=== PATIENT | male | born 1945 | race Caucasian/White ===

== ENCOUNTER 2020-08-19 13:10 | Inpatient (IN) ==
[2020-08-19] MEDS ORDERED: ALBUTEROL/IPRATROPIUM 3 ML NEB RESP TX STA (14:15)
[2020-08-19 15:07] LABS: Basophils % 0.1 % (0.0-0.8); Eosinophils # 0.2 10*3/uL (0.0-0.87); Eosinophils % 1.1 % (0.00-10.9); Hematocrit 34.6 VOL% (42.0-52.0); Immature Granulocytes % 0.9 %; Immature Granulocytes Absolute 0.12 #; Lymphocytes # 0.7 10*3/uL (1.4-4.0); Lymphocytes % 4.8 % (21.2-54.2); Mean Corpuscular HGB Conc 31.8 GM/DL (32-36); Mean Corpuscular Volume 85.2 FL (87-102); Mean Platelet Volume 11.3 FL (9.6-12.0); Monocytes % 5.8 % (1.7-12.7); Neutrophils % 87.3 % (38.7-73.9); Platelet Count 246 T/CUMM (130-400); Red Blood Count 4.06 MC/CUMM (3.8-5.5); Red Cell Distribution Width 16.1 % (9.3-17.3); White Blood Count 13.8 T/CUMM (4-12)
[2020-08-19 15:35] LABS: Albumin 2.9 G/DL (3.4-5.0); Bilirubin,Total 0.6 MG/DL (0.2-1.0); Osmolality,Calculated 294.2 MOS/KG (273-304); Potassium 3.8 MMOL/L (3.5-5.1)
[2020-08-19] MEDS ORDERED: ENOXAPARIN 30 MG/0.3 ML SYRINGE SUBCUT STA (15:41)
[2020-08-19] MEDS ORDERED: ASPIRIN CHEW 81 MG TABLET PO STA (15:41)
[2020-08-19] MEDS ORDERED: FUROSEMIDE 100 MG/10 ML VIAL IV STA (15:41)
[2020-08-19] MEDS ORDERED: ACETAMINOPHEN 325 MG TABLET PO PRN (15:58)
[2020-08-19] MEDS ORDERED: ONDANSETRON 4 MG/2 ML VIAL IV PRN (15:58)
[2020-08-19] MEDS ORDERED: ENOXAPARIN 100 MG/ML SYRINGE SUBCUT ONE (16:13)
[2020-08-19] MEDS ORDERED: ZALEPLON 5 MG CAPSULE PO PRN (18:25)
[2020-08-19] MEDS ORDERED: ALBUTEROL/IPRATROPIUM 3 ML NEB RESP TX PRN (18:29)
[2020-08-19] MEDS: ALBUTEROL/IPRATROPIUM 3 ML NEB RESP TX SCH (20:07)
[2020-08-19] MEDS: TAMSULOSIN 0.4 MG CAPSULE PO SCH (21:29)
[2020-08-19] MEDS: carvediloL 25 MG TABLET PO SCH (21:29)
[2020-08-19] MEDS: DOCUSATE SODIUM 100 MG CAPSULE PO SCH (21:29)
[2020-08-20 01:06] LABS: Basophils % 0.2 % (0.0-0.8); Eosinophils # 0.1 10*3/uL (0.0-0.87); Eosinophils % 0.5 % (0.00-10.9); Hematocrit 32.8 VOL% (42.0-52.0); Hemoglobin 10.5 GM/DL (14.0-18.0); Immature Granulocytes % 0.6 %; Immature Granulocytes Absolute 0.07 #; Lymphocytes # 0.8 10*3/uL (1.4-4.0); Lymphocytes % 6.2 % (21.2-54.2); Mean Corpuscular Volume 84.3 FL (87-102); Mean Platelet Volume 11.3 FL (9.6-12.0); Neutrophils % 87.5 % (38.7-73.9); Platelet Count 243 T/CUMM (130-400); Red Blood Count 3.89 MC/CUMM (3.8-5.5); Red Cell Distribution Width 15.9 % (9.3-17.3); White Blood Count 12.3 T/CUMM (4-12)
[2020-08-20] MEDS: ALBUTEROL/IPRATROPIUM 3 ML NEB RESP TX SCH ×4 (01:19→20:30)
[2020-08-20 01:38] LABS: Risk Ratio 3.78; Thyroid Stimulating Hormone 0.822 uIU/ml (0.358-3.74); VLDL CHOLESTEROL 25.4 MG/DL
[2020-08-20] MEDS ORDERED: POTASSIUM CHLORIDE 10 MEQ TABLET PO SCH (09:00)
[2020-08-20 09:06] LABS: Calcium 8.3 MG/DL (8.5-10.1); Osmolality,Calculated 285.8 MOS/KG (273-304); Potassium 3.3 MMOL/L (3.5-5.1)
[2020-08-20] MEDS: ASPIRIN CHEW 81 MG TABLET PO SCH (10:11)
[2020-08-20] MEDS: amLODIPine 5 MG TABLET PO SCH (10:11)
[2020-08-20] MEDS: DUTASTERIDE 0.5 MG CAPSULE PO SCH (10:11)
[2020-08-20] MEDS: PANTOPRAZOLE 40 MG TABLET PO SCH (10:11)
[2020-08-20] MEDS: carvediloL 25 MG TABLET PO SCH ×2 (10:11→22:24)
[2020-08-20] MEDS: ATORVASTATIN 40 MG TABLET PO SCH (10:11)
[2020-08-20] MEDS: DOCUSATE SODIUM 100 MG CAPSULE PO SCH ×2 (10:12→22:25)
[2020-08-20] MEDS: FUROSEMIDE 40 MG/4 ML VIAL IV SCH ×2 (10:36→15:55)
[2020-08-20] MEDS ORDERED: TUBERCULIN SKIN TEST 0.1 ML SYRINGE INTRADERM ONE (17:00)
[2020-08-20] MEDS: APIXABAN 5 MG TABLET PO SCH (22:24)
[2020-08-20] MEDS: TAMSULOSIN 0.4 MG CAPSULE PO SCH (22:24)
[2020-08-21] MEDS: ALBUTEROL/IPRATROPIUM 3 ML NEB RESP TX SCH ×4 (01:50→20:48)
[2020-08-21 05:35] LABS: Basophils % 0.2 % (0.0-0.8); Eosinophils # 0.4 10*3/uL (0.0-0.87); Eosinophils % 2.8 % (0.00-10.9); Hemoglobin 10.7 GM/DL (14.0-18.0); Immature Granulocytes % 0.8 %; Lymphocytes # 1.1 10*3/uL (1.4-4.0); Lymphocytes % 8.9 % (21.2-54.2); Mean Corpuscular HGB Conc 32.4 GM/DL (32-36); Mean Corpuscular Volume 83.1 FL (87-102); Mean Platelet Volume 11.3 FL (9.6-12.0); Neutrophils % 78.3 % (38.7-73.9); Platelet Count 251 T/CUMM (130-400); Red Blood Count 3.97 MC/CUMM (3.8-5.5); Red Cell Distribution Width 15.5 % (9.3-17.3); White Blood Count 12.7 T/CUMM (4-12)
[2020-08-21 06:06] LABS: Albumin 2.7 G/DL (3.4-5.0); Bilirubin,Total 0.5 MG/DL (0.2-1.0); Calcium 7.8 MG/DL (8.5-10.1); Osmolality,Calculated 292.1 MOS/KG (273-304); Total Protein 6.7 G/DL (5.0-7.5)
[2020-08-21 06:42] LABS: Hypochromasia 1+; Microcytosis 1+
[2020-08-21 06:43] LABS: Ovalocytes Slight; Platelet Estimate Normal
[2020-08-21] MEDS ORDERED: AZITHROMYCIN 250 MG TABLET PO ONE (07:53)
[2020-08-21] MEDS: PANTOPRAZOLE 40 MG TABLET PO SCH (09:22)
[2020-08-21] MEDS: DUTASTERIDE 0.5 MG CAPSULE PO SCH (09:22)
[2020-08-21] MEDS: ASPIRIN CHEW 81 MG TABLET PO SCH (09:22)
[2020-08-21] MEDS: DOCUSATE SODIUM 100 MG CAPSULE PO SCH ×2 (09:22→20:35)
[2020-08-21] MEDS: amLODIPine 5 MG TABLET PO SCH (09:23)
[2020-08-21] MEDS: APIXABAN 5 MG TABLET PO SCH ×2 (09:23→20:35)
[2020-08-21] MEDS: carvediloL 25 MG TABLET PO SCH ×2 (09:23→20:35)
[2020-08-21] MEDS: ATORVASTATIN 40 MG TABLET PO SCH (09:23)
[2020-08-21] MEDS: POTASSIUM CHLORIDE 10 MEQ TABLET PO SCH ×2 (09:23→20:34)
[2020-08-21] MEDS: FUROSEMIDE 40 MG/4 ML VIAL IV SCH (09:24)
[2020-08-21] MEDS: POTASSIUM CHLORIDE RIDER 10 MEQ in PREMIX 1 EACH IV SCH ×3 (09:24→13:54)
[2020-08-21] MEDS: BENZONATATE 100 MG CAPSULE PO PRN ×2 (11:05→18:12)
[2020-08-21] MEDS ORDERED: POTASSIUM CHLORIDE 20 MEQ TABLET PO ONE (11:57)
[2020-08-21] MEDS ORDERED: POTASSIUM CHLORIDE RIDER 10 MEQ in PREMIX 1 EACH IV SCH (13:30)
[2020-08-21] MEDS: FUROSEMIDE 40 MG TABLET PO SCH (16:50)
[2020-08-21] MEDS: TAMSULOSIN 0.4 MG CAPSULE PO SCH (20:35)
[2020-08-21] MEDS: BENZOCAINE/MENTHOL LOZENGE 18/BOX PO PRN (20:36)
[2020-08-22] MEDS: BENZOCAINE/MENTHOL LOZENGE 18/BOX PO PRN ×2 (01:59→20:39)
[2020-08-22] MEDS: ALBUTEROL/IPRATROPIUM 3 ML NEB RESP TX SCH ×4 (02:12→19:19)
[2020-08-22 05:15] LABS: Basophils # 0.1 10*3/uL (0.0-0.2); Basophils % 0.4 % (0.0-0.8); Eosinophils # 0.4 10*3/uL (0.0-0.87); Eosinophils % 3.5 % (0.00-10.9); Hematocrit 33.6 VOL% (42.0-52.0); Hemoglobin 10.8 GM/DL (14.0-18.0); Immature Granulocytes % 1.6 %; Immature Granulocytes Absolute 0.19 #; Lymphocytes # 1.1 10*3/uL (1.4-4.0); Lymphocytes % 9.6 % (21.2-54.2); Mean Corpuscular HGB Conc 32.1 GM/DL (32-36); Mean Corpuscular Volume 84.8 FL (87-102); Mean Platelet Volume 11.1 FL (9.6-12.0); Monocytes % 9.8 % (1.7-12.7); NRBC # 0.02 10*3/uL; Neutrophils % 75.1 % (38.7-73.9); Platelet Count 289 T/CUMM (130-400); Red Blood Count 3.96 MC/CUMM (3.8-5.5); Red Cell Distribution Width 15.5 % (9.3-17.3); White Blood Count 11.9 T/CUMM (4-12)
[2020-08-22 05:43] LABS: Albumin 2.6 G/DL (3.4-5.0); Bilirubin,Total 0.6 MG/DL (0.2-1.0); Calcium 7.8 MG/DL (8.5-10.1); Osmolality,Calculated 295.5 MOS/KG (273-304); Potassium 3.1 MMOL/L (3.5-5.1); Total Protein 6.7 G/DL (5.0-7.5)
[2020-08-22] MEDS: amLODIPine 5 MG TABLET PO SCH (09:02)
[2020-08-22] MEDS: DUTASTERIDE 0.5 MG CAPSULE PO SCH (09:02)
[2020-08-22] MEDS: PANTOPRAZOLE 40 MG TABLET PO SCH (09:02)
[2020-08-22] MEDS: APIXABAN 5 MG TABLET PO SCH ×2 (09:02→20:34)
[2020-08-22] MEDS: FUROSEMIDE 40 MG TABLET PO SCH ×2 (09:02→15:52)
[2020-08-22] MEDS: POTASSIUM CHLORIDE 10 MEQ TABLET PO SCH ×2 (09:03→20:35)
[2020-08-22] MEDS: carvediloL 25 MG TABLET PO SCH ×2 (09:03→20:35)
[2020-08-22] MEDS: ASPIRIN CHEW 81 MG TABLET PO SCH (09:03)
[2020-08-22] MEDS: ATORVASTATIN 40 MG TABLET PO SCH (09:03)
[2020-08-22] MEDS: AZITHROMYCIN 250 MG TABLET PO SCH (09:03)
[2020-08-22] MEDS: DOCUSATE SODIUM 100 MG CAPSULE PO SCH ×2 (09:03→20:35)
[2020-08-22] MEDS: BENZONATATE 100 MG CAPSULE PO PRN (15:52)
[2020-08-22] MEDS: TAMSULOSIN 0.4 MG CAPSULE PO SCH (20:35)
[2020-08-22] MEDS: cefTRIAXone 1,000 MG in SYRINGE 1 EACH IV SCH (20:35)
[2020-08-23] MEDS: ALBUTEROL/IPRATROPIUM 3 ML NEB RESP TX SCH ×4 (01:36→19:15)
[2020-08-23 05:30] LABS: Basophils # 0.1 10*3/uL (0.0-0.2); Basophils % 0.5 % (0.0-0.8); Eosinophils # 0.3 10*3/uL (0.0-0.87); Eosinophils % 3.3 % (0.00-10.9); Hemoglobin 10.9 GM/DL (14.0-18.0); Immature Granulocytes Absolute 0.39 #; Lymphocytes # 1.8 10*3/uL (1.4-4.0); Lymphocytes % 18.1 % (21.2-54.2); Mean Corpuscular HGB Conc 31.1 GM/DL (32-36); Mean Platelet Volume 10.7 FL (9.6-12.0); Monocytes % 12.7 % (1.7-12.7); NRBC # 0.04 10*3/uL; Neutrophils % 61.4 % (38.7-73.9); Platelet Count 302 T/CUMM (130-400); Red Blood Count 4.07 MC/CUMM (3.8-5.5); Red Cell Distribution Width 15.5 % (9.3-17.3); White Blood Count 9.7 T/CUMM (4-12)
[2020-08-23 05:48] LABS: Albumin 2.5 G/DL (3.4-5.0); Bilirubin,Direct 0.16 MG/DL (0.0-0.20); Bilirubin,Indirect 0.2 MG/DL (0.0-1.0); Bilirubin,Total 0.4 MG/DL (0.2-1.0); Osmolality,Calculated 285.7 MOS/KG (273-304); Potassium 3.1 MMOL/L (3.5-5.1); Total Protein 6.4 G/DL (5.0-7.5)
[2020-08-23] MEDS: BENZONATATE 100 MG CAPSULE PO PRN ×2 (09:21→17:06)
[2020-08-23] MEDS: APIXABAN 5 MG TABLET PO SCH ×2 (09:21→20:32)
[2020-08-23] MEDS: ASPIRIN CHEW 81 MG TABLET PO SCH (09:21)
[2020-08-23] MEDS: DUTASTERIDE 0.5 MG CAPSULE PO SCH (09:21)
[2020-08-23] MEDS: ATORVASTATIN 40 MG TABLET PO SCH (09:21)
[2020-08-23] MEDS: carvediloL 25 MG TABLET PO SCH ×2 (09:21→20:32)
[2020-08-23] MEDS: DOCUSATE SODIUM 100 MG CAPSULE PO SCH ×2 (09:22→20:31)
[2020-08-23] MEDS: amLODIPine 5 MG TABLET PO SCH (09:22)
[2020-08-23] MEDS: AZITHROMYCIN 250 MG TABLET PO SCH (09:22)
[2020-08-23] MEDS: FUROSEMIDE 40 MG TABLET PO SCH ×2 (09:22→17:06)
[2020-08-23] MEDS: PANTOPRAZOLE 40 MG TABLET PO SCH (09:22)
[2020-08-23] MEDS: POTASSIUM CHLORIDE 10 MEQ TABLET PO SCH ×2 (09:22→20:32)
[2020-08-23] MEDS ORDERED: POTASSIUM CHLORIDE 20 MEQ TABLET PO ONE (14:31)
[2020-08-23] MEDS ORDERED: POTASSIUM CHLORIDE 20 MEQ TABLET PO PRN (16:55)
[2020-08-23] MEDS: cefTRIAXone 1,000 MG in SYRINGE 1 EACH IV SCH (20:31)
[2020-08-23] MEDS: TAMSULOSIN 0.4 MG CAPSULE PO SCH (20:32)
[2020-08-24] MEDS: ALBUTEROL/IPRATROPIUM 3 ML NEB RESP TX SCH ×4 (01:12→20:03)
[2020-08-24] MEDS: BENZOCAINE/MENTHOL LOZENGE 18/BOX PO PRN ×2 (02:14→09:30)
[2020-08-24] MEDS: carvediloL 25 MG TABLET PO SCH ×2 (09:30→20:34)
[2020-08-24] MEDS: DOCUSATE SODIUM 100 MG CAPSULE PO SCH ×2 (09:30→20:33)
[2020-08-24] MEDS: ASPIRIN CHEW 81 MG TABLET PO SCH (09:30)
[2020-08-24] MEDS: ATORVASTATIN 40 MG TABLET PO SCH (09:30)
[2020-08-24] MEDS: PANTOPRAZOLE 40 MG TABLET PO SCH (09:30)
[2020-08-24] MEDS: POTASSIUM CHLORIDE RIDER 10 MEQ in PREMIX 1 EACH IV SCH ×4 (09:30→10:35)
[2020-08-24] MEDS: POTASSIUM CHLORIDE 20 MEQ TABLET PO SCH ×2 (09:30→20:34)
[2020-08-24] MEDS: DUTASTERIDE 0.5 MG CAPSULE PO SCH (09:30)
[2020-08-24] MEDS: FUROSEMIDE 40 MG TABLET PO SCH ×2 (09:30→15:46)
[2020-08-24] MEDS: APIXABAN 5 MG TABLET PO SCH ×2 (09:30→20:34)
[2020-08-24] MEDS: AZITHROMYCIN 250 MG TABLET PO SCH (09:30)
[2020-08-24] MEDS: amLODIPine 5 MG TABLET PO SCH (09:30)
[2020-08-24] MEDS: POTASSIUM CHLORIDE 10 MEQ TABLET PO SCH (10:00)
[2020-08-24] MEDS: POTASSIUM CHLORIDE 20 MEQ TABLET PO PRN ×2 (10:22→15:46)
[2020-08-24] MEDS: TAMSULOSIN 0.4 MG CAPSULE PO SCH (20:34)
[2020-08-24] MEDS: cefTRIAXone 1,000 MG in SYRINGE 1 EACH IV SCH (21:00)
[2020-08-25] MEDS: ALBUTEROL/IPRATROPIUM 3 ML NEB RESP TX SCH ×4 (01:31→19:40)
[2020-08-25 06:08] LABS: Basophils # 0.1 10*3/uL (0.0-0.2); Basophils % 0.8 % (0.0-0.8); Eosinophils # 0.3 10*3/uL (0.0-0.87); Eosinophils % 2.6 % (0.00-10.9); Hemoglobin 11.3 GM/DL (14.0-18.0); Immature Granulocytes % 5.8 %; Immature Granulocytes Absolute 0.57 #; Lymphocytes # 1.8 10*3/uL (1.4-4.0); Lymphocytes % 18.8 % (21.2-54.2); Mean Corpuscular HGB Conc 32.3 GM/DL (32-36); Mean Corpuscular Volume 85.6 FL (87-102); Mean Platelet Volume 10.9 FL (9.6-12.0); Monocytes % 13.1 % (1.7-12.7); NRBC # 0.07 10*3/uL; Neutrophils % 58.9 % (38.7-73.9); Platelet Count 317 T/CUMM (130-400); Red Blood Count 4.09 MC/CUMM (3.8-5.5); Red Cell Distribution Width 15.9 % (9.3-17.3); White Blood Count 9.8 T/CUMM (4-12)
[2020-08-25 06:19] LABS: Calcium 8.3 MG/DL (8.5-10.1); Osmolality,Calculated 285.1 MOS/KG (273-304); Potassium 3.7 MMOL/L (3.5-5.1)
[2020-08-25 06:33] LABS: Band Neutrophils 1 % (0-10); Eosinophils 4 % (0-10); Lymphocytes 15 % (20-55); Segmented Neutrophils 65 % (50-85); Total Cells Counted 100
[2020-08-25 06:34] LABS: Hypochromasia 1+; Microcytosis 1+; Ovalocytes Slight; Platelet Estimate Normal
[2020-08-25] MEDS: ASPIRIN CHEW 81 MG TABLET PO SCH (08:16)
[2020-08-25] MEDS: APIXABAN 5 MG TABLET PO SCH ×2 (08:16→20:39)
[2020-08-25] MEDS: ATORVASTATIN 40 MG TABLET PO SCH (08:16)
[2020-08-25] MEDS: PANTOPRAZOLE 40 MG TABLET PO SCH (08:16)
[2020-08-25] MEDS: DOCUSATE SODIUM 100 MG CAPSULE PO SCH ×2 (08:16→20:39)
[2020-08-25] MEDS: POTASSIUM CHLORIDE 20 MEQ TABLET PO SCH ×2 (08:16→20:39)
[2020-08-25] MEDS: AZITHROMYCIN 250 MG TABLET PO SCH (08:16)
[2020-08-25] MEDS: carvediloL 25 MG TABLET PO SCH ×2 (08:17→20:39)
[2020-08-25] MEDS: FUROSEMIDE 40 MG TABLET PO SCH ×2 (08:17→16:28)
[2020-08-25] MEDS: amLODIPine 5 MG TABLET PO SCH (08:17)
[2020-08-25] MEDS: DUTASTERIDE 0.5 MG CAPSULE PO SCH (08:20)
[2020-08-25] MEDS: TAMSULOSIN 0.4 MG CAPSULE PO SCH (20:38)
[2020-08-25] MEDS: cefTRIAXone 1,000 MG in SYRINGE 1 EACH IV SCH (20:41)
[2020-08-26] MEDS: ALBUTEROL/IPRATROPIUM 3 ML NEB RESP TX SCH ×4 (01:05→19:07)
[2020-08-26 05:41] LABS: Basophils # 0.1 10*3/uL (0.0-0.2); Basophils % 0.5 % (0.0-0.8); Eosinophils # 0.2 10*3/uL (0.0-0.87); Eosinophils % 1.7 % (0.00-10.9); Hematocrit 33.6 VOL% (42.0-52.0); Hemoglobin 10.5 GM/DL (14.0-18.0); Immature Granulocytes % 5.3 %; Immature Granulocytes Absolute 0.55 #; Mean Corpuscular HGB Conc 31.3 GM/DL (32-36); Mean Corpuscular Volume 87.3 FL (87-102); Mean Platelet Volume 10.3 FL (9.6-12.0); Monocytes % 8.3 % (1.7-12.7); NRBC # 0.05 10*3/uL; Neutrophils % 65.2 % (38.7-73.9); Platelet Count 312 T/CUMM (130-400); Red Blood Count 3.85 MC/CUMM (3.8-5.5); White Blood Count 10.3 T/CUMM (4-12)
[2020-08-26 05:52] LABS: Calcium 8.6 MG/DL (8.5-10.1); Osmolality,Calculated 281.3 MOS/KG (273-304); Potassium 3.5 MMOL/L (3.5-5.1)
[2020-08-26 06:11] LABS: Band Neutrophils 2 % (0-10); Eosinophils 1 % (0-10); Hypochromasia 1+; Lymphocytes 25 % (20-55); Microcytosis 1+; Nucleated Red Blood Cells 1 (0-5); Platelet Estimate Adequate; Segmented Neutrophils 61 % (50-85); Total Cells Counted 100
[2020-08-26] MEDS: amLODIPine 5 MG TABLET PO SCH (09:22)
[2020-08-26] MEDS: APIXABAN 5 MG TABLET PO SCH ×2 (09:22→21:26)
[2020-08-26] MEDS: DUTASTERIDE 0.5 MG CAPSULE PO SCH (09:22)
[2020-08-26] MEDS: DOCUSATE SODIUM 100 MG CAPSULE PO SCH ×2 (09:22→21:26)
[2020-08-26] MEDS: ASPIRIN CHEW 81 MG TABLET PO SCH (09:22)
[2020-08-26] MEDS: POTASSIUM CHLORIDE 20 MEQ TABLET PO SCH ×2 (09:22→21:26)
[2020-08-26] MEDS: AZITHROMYCIN 250 MG TABLET PO SCH (09:22)
[2020-08-26] MEDS: FUROSEMIDE 40 MG TABLET PO SCH ×2 (09:23→16:06)
[2020-08-26] MEDS: ATORVASTATIN 40 MG TABLET PO SCH (09:23)
[2020-08-26] MEDS: PANTOPRAZOLE 40 MG TABLET PO SCH (09:23)
[2020-08-26] MEDS: carvediloL 25 MG TABLET PO SCH ×2 (09:23→21:26)
[2020-08-26] MEDS: TAMSULOSIN 0.4 MG CAPSULE PO SCH (21:26)
[2020-08-26] MEDS: cefTRIAXone 1,000 MG in SYRINGE 1 EACH IV SCH (21:27)
[2020-08-27] MEDS: ALBUTEROL/IPRATROPIUM 3 ML NEB RESP TX SCH ×2 (00:40→07:35)
[2020-08-27 05:10] LABS: Basophils # 0.1 10*3/uL (0.0-0.2); Basophils % 0.5 % (0.0-0.8); Eosinophils # 0.2 10*3/uL (0.0-0.87); Eosinophils % 1.7 % (0.00-10.9); Hematocrit 39.2 VOL% (42.0-52.0); Hemoglobin 11.8 GM/DL (14.0-18.0); Immature Granulocytes % 4.3 %; Immature Granulocytes Absolute 0.47 #; Lymphocytes # 1.7 10*3/uL (1.4-4.0); Lymphocytes % 15.9 % (21.2-54.2); Mean Corpuscular HGB Conc 30.1 GM/DL (32-36); Mean Corpuscular Volume 85.2 FL (87-102); Mean Platelet Volume 10.2 FL (9.6-12.0); Monocytes % 8.1 % (1.7-12.7); NRBC # 0.03 10*3/uL; Neutrophils % 69.5 % (38.7-73.9); Platelet Count 310 T/CUMM (130-400); Red Cell Distribution Width 15.9 % (9.3-17.3); White Blood Count 10.9 T/CUMM (4-12)
[2020-08-27 05:30] LABS: Calcium 8.5 MG/DL (8.5-10.1); Osmolality,Calculated 279.4 MOS/KG (273-304)
[2020-08-27] MEDS: ASPIRIN CHEW 81 MG TABLET PO SCH (09:09)
[2020-08-27] MEDS: FUROSEMIDE 40 MG TABLET PO SCH (09:10)
[2020-08-27] MEDS: POTASSIUM CHLORIDE 20 MEQ TABLET PO SCH (09:10)
[2020-08-27] MEDS: APIXABAN 5 MG TABLET PO SCH (09:10)
[2020-08-27] MEDS: AZITHROMYCIN 250 MG TABLET PO SCH (09:10)
[2020-08-27] MEDS: DUTASTERIDE 0.5 MG CAPSULE PO SCH (09:10)
[2020-08-27] MEDS: amLODIPine 5 MG TABLET PO SCH (09:10)
[2020-08-27] MEDS: PANTOPRAZOLE 40 MG TABLET PO SCH (09:10)
[2020-08-27] MEDS: carvediloL 25 MG TABLET PO SCH (09:10)
[2020-08-27] MEDS: DOCUSATE SODIUM 100 MG CAPSULE PO SCH (09:10)
[2020-08-27] MEDS: ATORVASTATIN 40 MG TABLET PO SCH (09:11)
[2020-08-27 11:07] VITALS: BP 163/84
== END 2020-08-27 11:26 | DRG 280 ==
LOC: EDBD → EDUNIT# → N.ED 13:10 → N.EDINP 13:10 → N.TELES 16:13
PROVIDERS: ADMIT Family Medicine; ATTEND Family Medicine